=== PATIENT | male | born 1965 | race Caucasian/White ===

== ENCOUNTER 2020-03-07 07:20 | Inpatient (IN) | payer OTHER ==
[~2020-03-07] VITALS: Ht 180.3 cm; Wt 117.0 kg
[~2020-03-07 07:20] MED LIST: LISINOPRIL30 MG PO; METFORMIN HCL500 M3 PO; NORCO 5-325 TA1 EACH PO; VITAMIN D50000 UNI1 PO; ZOFRAN4 MG SL
== END 2020-03-12 10:45 | disposition home or self-care (01) | DRG 177 ==
LOC: ED 07:20 → CCU 10:13 → ED 10:13 → MS 10:17
PROVIDERS: ADMIT Internal Medicine
PROC: 8E0ZXY6 Isolation (ICD-10-PCS; principal; 2020-03-07)
DX: U07.1 COVID-19 (principal); J12.89 Other viral pneumonia; J96.01 Acute respiratory failure with hypoxia; I10 Essential (primary) hypertension; R73.03 Prediabetes; G47.33 Obstructive sleep apnea (adult) (pediatric); D69.6 Thrombocytopenia, unspecified; R74.0 Nonspecific elevation of levels of transaminase and lactic acid dehydrogenase [LDH]; Z79.899 Other long term (current) drug therapy; Z79.84 Long term (current) use of oral hypoglycemic drugs
CPT/HCPCS: 71045; 80053; 81001; 82728; 83605; 84484; 85025; 85379; 87040; 87070; 87205; 87502; 94640; 94667; 94762; 99285-25; J0456; J0696; J7030; J7060; J7121; U0002

== ENCOUNTER 2025-06-23 21:02 | Emergency (ER) | payer SELFPAY ==
[~2025-06-23] VITALS: Ht 180.3 cm; Wt 97.8 kg
[2025-06-23] MEDS ORDERED: CARVEDILOL6.25 MG PO (21:23)
[2025-06-23] MEDS ORDERED: SERTRALINE HCL50 MG PO (21:23)
[2025-06-23 21:44] LABS: BASOPHILS 1.1 % (0.2-1.2); EOSINOPHILS 0.8 % (0.8-7.0); LYMPHOCYTES 35.1 % (21.8-53.1); MCH 33.1 PG (25.7-32.2); MCHC 33.0 g/dL (32.3-36.5); MCV 100.3 fL (79.0-92.2); MONOCYTES 11.6 % (5.3-12.2); NEUTROPHILS 50.6 % (34.0-67.9); RBC 3.66 M/uL (4.63-6.08)
[2025-06-23] MEDS ORDERED: KETAMINE in NS 50 MG/5 ML SYR IV ONE (21:45)
[2025-06-23] MEDS ORDERED: LACTATED RINGER'S 1,000 ML IV ONE ×3 (21:45→22:30)
[2025-06-23 21:54] LABS: ALT (SGPT) 45.0 U/L (14-59); AST (SGOT) 145.0 U/L (15-37); GLOMERULAR FILTRATION RATE,EST 60.0 mL/min (>60); PROTEIN, TOTAL 7.5 g/dL (6.4-8.2); UREA NITROGEN 14.0 mg/dL (7-18)
[2025-06-23] MEDS ORDERED: THIAMINE HCL 100 MG TAB PO ONE (23:00)
[2025-06-23 23:33] LABS: INR 1.55 (0.80-1.30); PROTIME 18.0 Sec (11.2-14.2)
[2025-06-24 00:17] LABS: LACTIC ACID, BLOOD 4.5 mmol/L (0.4-2.0)
[2025-06-24 00:28] LABS: BLOOD/HGB, URINE TRACE-I (Negative); KETONE, URINE TRACE (Negative); LEUK ESTERASE, URINE NEGATIVE (negative); NITRITE, URINE NEGATIVE (negative)
[2025-06-24 00:32] LABS: EPITHELIAL CELLS, URINE SQUAMOUS 3+ /lpf (0-1+)
[2025-06-24 00:33] LABS: BACTERIA, URINE RARE /hpf (negative); CRYSTALS, URINE NONE SEEN (0-1+)
[2025-06-24 00:34] LABS: CASTS, URINE HYALINE 1+ \\lpf; REFLEX CULTURE, URINE No (No)
[2025-06-24 00:42] LABS: AMPHETAMINES, URINE NEGATIVE (NEGATIVE); BARBITURATES, URINE NEGATIVE (NEGATIVE); BENZODIAZEPINE, URINE NEGATIVE (NEGATIVE); CANNABINOID, URINE NEGATIVE (NEGATIVE); COCAINE, URINE NEGATIVE (NEGATIVE); ECSTASY, URINE NEGATIVE (NEGATIVE); FENTANYL, URINE NEGATIVE (NEGATIVE); METHADONE, URINE NEGATIVE (NEGATIVE); OPIATES, URINE NEGATIVE (NEGATIVE); OXYCODONE, URINE NEGATIVE (NEGATIVE); PHENCYCLIDINE, URINE NEGATIVE (NEGATIVE)
[2025-06-24] MEDS ORDERED: CHLORDIAZEPOXID25 MG PO (00:43)
[2025-06-24] MEDS ORDERED: CHLORDIAZEPOXIDE 25 MG CAP PO ONE (00:45)
[2025-06-24] MEDS ORDERED: MULTI VITAMIN1 EACH PO (00:54)
[2025-06-24] MEDS ORDERED: VITAMIN B-1100 M1 PO (00:54)
[2025-06-24] MEDS ORDERED: FOLIC ACID1 MG PO (00:54)
[2025-06-24] MEDS ORDERED: PHYTONADIONE 2.5 MG/2.5 ML SYR PO ONE (01:00)
[2025-06-24 01:15] VITALS: BP 108/70
--- NOTE | 2025-06-25 21:19 | EKG ---
[facility] [address] [place], [place] [address] Signed Normal sinus rhythm Prolonged QT Abnormal ECG Confirmed by Kimberly Diana DO ([id number]) on 06/25/2025 9:18:50 PM Electronically Signed By: KIMBERLY DIANA DO 06/25/25 2119 PATIENT NAME: HARVEY LIMA Electrocardiogram DATE OF : 69 PHYSICIAN: KIMBERLY DIANA DO REPORT #: [id number] REPORT IS CONFIDENTIAL AND NOT TO BE RELEASED WITHOUT AUTHORIZATION
== END 2025-06-24 01:15 | disposition home or self-care (01) ==
LOC: ED 21:02
PROVIDERS: Internal Medicine
DX: M66.0 Rupture of popliteal cyst (principal); I10 Essential (primary) hypertension; Z79.84 Long term (current) use of oral hypoglycemic drugs; Z79.899 Other long term (current) drug therapy
CPT/HCPCS: 36415; 71045; 71260; 73700; 80053; 80307; 81001; 83605; 84484; 85025; 85379; 85610; 85730; 93005; 93010; G0480; J0696; J3490; J7121; Q9967